=== PATIENT | female | born 1970 | race Caucasian/White ===

== ENCOUNTER → 2016-09-24 | Outpatient (CLI) | payer BC ==
[2016-04-01 10:31] VITALS: BP 139/94
[~2016-09-24] MED LIST: APIX5TAB PO; DESO1TAB4 PO; DICL100G7 TP; DICL75TA PO; DOCU-27 PO; HYDR-2666 PO; MULT1TAB52 PO; OXYC10TA32 PO; POLY17PO5 PO; birth control
--- NOTE | 2016-09-24 11:41 | RAD ---
Right lower extremity venous ultrasound, 09/24/2016: History: Follow-up DVT Duplex evaluation of the major veins in the right lower extremity was performed including grayscale, color-flow and spectral Doppler analysis. Comparison is made to a study from 03/30/2016. The common femoral vein and the upper aspect of the femoral vein in the thigh are widely patent. There is nonocclusive smooth echogenic thrombus along the wall of the femoral vein in the distal thigh extending into the popliteal vein. This represents an improvement since the previous study at which time occlusive clot was present in these regions. The posterior tibial and peroneal veins are now patent. IMPRESSION: Right lower extremity deep vein thrombosis has improved since 03/30/2016, with mild to moderate residual nonocclusive mural thrombus in the femoral vein in the distal thigh and in the popliteal vein.
== END | disposition home or self-care (01) ==
LOC: US 07:43
PROVIDERS: ATTEND Physician Assistant Medical
DX: I82.4Z1 Acute embolism and thrombosis of unspecified deep veins of right distal lower extremity (principal); M79.604 Pain in right leg
CPT/HCPCS: 93971

== ENCOUNTER 2016-10-06 19:01 | Emergency (ER) | payer BC ==
[~2016-10-06] VITALS: Ht 162.6 cm; Wt 93.6 kg
[2016-10-06 19:01] VITALS: BP 124/88
--- NOTE | 2016-10-06 19:09 | ED.ADGEN ---
Past History Past Medical History: No Pertinent History Past Surgical History: Cholecystectomy Alcohol Use: Occasionally Drug Use: None Adult General Chief Complaint Chief Complaint " I fell holding my dogs.. and it took me down on my Lt. side.. I had both on walking Leases... Bandit in my Rt. hand and Jm in my Lt. hand... Bandit slipped his collar.. and Jm took me down when I lost my balance...." HPI HPI Patient is a 46 year old female who presents with above hx and complaints of fall caused by her pets " Bandit " and "Jm". Patient landed on left shoulder and side. Patient is ambulatory without problem. Distal neurovascular intact. But does have pain that persisted in left shoulder and Lt elbow. . Isolation rotator cuff exacerbates pain. Patient is partially able to hold arm extended on left however gives way secondary to pain. Some tenderness to right clavicle. Patient normally healthy. No other injuries reported. No history of immunosuppression. Patient is not currently on "blood thinners" coag. meds. for recent DVT. Review of Systems Review of Systems Constitutional: Denies fever or chills [] Eyes: Denies change in visual acuity, redness, or eye pain [] HENT: Denies nasal congestion or sore throat [] Respiratory: Denies cough or shortness of breath [] Cardiovascular: No additional information not addressed in HPI [] GI: Denies abdominal pain, nausea, vomiting, bloody stools or diarrhea [] : Denies dysuria or hematuria [] Musculoskeletal: Complaints of left shoulder pain Integument: Denies rash or skin lesions [] Neurologic: Denies headache, focal weakness or sensory changes [] Endocrine: Denies polyuria or polydipsia [] Family History Family History Mother has history of DVT Current Medications Current Medications Current Medications Medications (Trade) Dose Ordered Sig/Riley Start Time Stop Time Status Last Admin Dose Admin Hydrocodone Bitartrate/ Ibuprofen (Vicoprofen 7.5-200) 2 tab 1X ONCE 10/06/16 19:45 10/06/16 19:46 DC 10/06/16 19:45 2 TAB Allergies Allergies Allergies Coded Allergies Type Severity Reaction Last Updated Verified amoxicillin Allergy Intermediate rash 03/30/16 Yes codeine Allergy Intermediate 04/01/16 Yes Physical Exam Physical Exam Constitutional: Mild distress, non-toxic appearance. [] HENT: Normocephalic, atraumatic, bilateral external ears normal, oropharynx moist, no oral exudates, nose normal. [] Eyes: PERRLA, EOMI, conjunctiva normal, no discharge. [] Neck: Normal range of motion, no tenderness, supple, no stridor. [] Cardiovascular:Heart rate regular rhythm, no murmur [] Lungs & Thorax: Bilateral breath sounds clear to auscultation []Some Rt. clavicle tenderness. Abdomen: Bowel sounds normal, soft, no tenderness, no masses, no pulsatile masses. [] Skin: Warm, dry, no erythema, no rash. [] Back: No tenderness, no CVA tenderness. [] Extremities: Lt. shoulder tenderness, Lt elbow tenderness, , no cyanosis, no clubbing, ROM intact but painful with Lt shoulder, no edema. [] Neurologic: Alert and oriented X 3, normal motor function, normal sensory function, no focal deficits noted. [] Psychologic: Affect normal, judgement normal, mood normal. [] Current Patient Data Vital Signs Vital Signs Date Time Temp Pulse Resp B/P Pulse Ox O2 Delivery O2 Flow Rate FiO2 10/06/16 19:01 98.0 84 16 100 Room Air EKG EKG [] Radiology/Procedures Radiology/Procedures My interpretation of of CXR shows no acute cardiopulmonary findings. No fracture dislocation left shoulder and elbow. [] Course & Med Decision Making Course & Med Decision Making Pertinent Labs and Imaging studies reviewed. (See chart for details). Ice pack and sling. The advance to moist heat after 3 days if no reinjury. Take over-the- counter Tylenol and ibuprofen for pain for marked pain may take Vicoprofen up 4 times a day. Follow-up primary care. Return if any concerns. May need orthopedic consult if no improvement. To do passive range of motion activities 4 times a day. Advance range of motion activity at a follow-up primary care. [] Final Impression Final Impression 1. Fall 2. Strain/sprain- Lt shoulder[] -rotator cuff injury Problems: Dragon Disclaimer Dragon Disclaimer This electronic medical record was generated, in whole or in part, using a voice recognition dictation system. PEACE PEREZ MD Oct 06, 2016 19:09
[2016-10-06] MEDS ORDERED: HYDR-79 PO (19:26)
[2016-10-06] MEDS ORDERED: HYDROCODON/IBUPROFEN 7.5/200MG TABLET. PO ONE (19:45)
--- NOTE | 2016-10-07 08:53 | RAD ---
Left humerus, 2 views, 10/06/2016: History: Fall, pain No humeral fracture or bony abnormality is detected. The soft tissues are unremarkable. IMPRESSION: No significant abnormality is detected. Left shoulder, 3 views, 10/06/2016: History: Fall, pain No fracture or dislocation is identified. The periarticular soft tissues are unremarkable. IMPRESSION: No acute left shoulder abnormality is detected. Chest, 2 views, 10/06/2016: History: Fall Comparison is made to a study from 01/20/2015. The heart size and pulmonary vascularity are normal. No pulmonary infiltrates are seen. There is no evidence of pleural fluid. Mild spurring is present in the spine. IMPRESSION: No acute cardiopulmonary abnormality is detected.
== END 2016-10-06 20:37 | disposition home or self-care (01) ==
LOC: ER 19:04
DX: S46.012A Strain of muscle(s) and tendon(s) of the rotator cuff of left shoulder, initial encounter (principal); Z86.718 Personal history of other venous thrombosis and embolism; Z88.1 Allergy status to other antibiotic agents; Z88.6 Allergy status to analgesic agent; W19.XXXA Unspecified fall, initial encounter; Y93.K1 Activity, walking an animal; Y99.8 Other external cause status; Y92.89 Other specified places as the place of occurrence of the external cause
CPT/HCPCS: 71020; 73030; 73060; 99284

== ENCOUNTER → 2017-02-28 | Outpatient (CLI) | payer BC ==
[~2017-02-28] MED LIST changes: -APIX5TAB PO; +APIX5TAB3 PO; +DICL100G18 TP; -DICL100G7 TP; +DOCU-109 PO; -DOCU-27 PO; -HYDR-2666 PO; +HYDR-2758 PO; +HYDR-79 PO; -OXYC10TA32 PO; +OXYC10TA45 PO
--- NOTE | 2017-02-28 16:57 | RAD ---
Venous Doppler ultrasound Indication: Right calf pain. History of DVT one year ago. Technique: Grayscale, color Doppler and spectral waveform ultrasound images of the right lower extremity veins obtained. Comparison: Previous study from 09/24/2016 Findings: The interrogated right lower extremity veins are compressible and demonstrate normal respiratory variation with response to augmentation. Linear echogenic bands are seen in the right popliteal vein suggesting changes of chronic DVT. Impression: Stigmata of chronic DVT in the right popliteal vein. No acute DVT.
== END | disposition home or self-care (01) ==
LOC: US 15:57
PROVIDERS: ATTEND Family Medicine
DX: I82.531 Chronic embolism and thrombosis of right popliteal vein (principal)
CPT/HCPCS: 93971

== ENCOUNTER → 2019-06-12 | Outpatient (CLI) | payer BC ==
[~2019-06-12] MED LIST changes: +HYDR-1179 PO; +HYDR-2155 PO; -HYDR-2758 PO; -HYDR-79 PO; -OXYC10TA45 PO; +OXYC10TA46 PO
--- NOTE | 2019-06-12 09:16 | RAD ---
Lumbar spine 7 views: Reason for examination: Lumbar radicular pain. The vertebral bodies of the lumbar spine are normally aligned anteriorly and posteriorly. No acute fracture or subluxation is seen. Posterior elements are intact. The intervertebral discs are maintained. No abnormalities evident at the sacrum or sacroiliac joints. IMPRESSION: No acute abnormality evident in the lumbar spine. Electronically signed by: Nereida Suazo MD (06/12/2019 9:13 AM) [id number]
== END | disposition home or self-care (01) ==
LOC: PMG 08:33
PROVIDERS: ATTEND Physician Assistant Medical
DX: M54.16 Radiculopathy, lumbar region (principal)
CPT/HCPCS: 72100